=== PATIENT | female | born 1995 | race American Indian/Alaskan Native ===

== ENCOUNTER 2019-08-04 22:13 | Emergency (ER) | payer SELFPAY ==
[2019-08-05 02:17] LABS: Bilirubin,Urine NEG (Negative); Blood,Urine MOD (Negative); Color,Urine Yellow (Yellow); Protein,Urine <15 mg/dL mg/dL (Negative); Urobilinogen,Urine < 2.0 mg/dL (<2.0)
[2019-08-05 02:20] LABS: HCG Qualitative,Urine Negative (Negative)
== END 2019-08-05 05:24 | disposition left against medical advice (07) ==
LOC: ED 22:13
DX: R07.89 Other chest pain (principal); R10.9 Unspecified abdominal pain; Z53.21 Procedure and treatment not carried out due to patient leaving prior to being seen by health care provider
CPT/HCPCS: 36415; 81001; 81025; 84703; 87086

== ENCOUNTER 2020-01-27 09:42 | Emergency (ER) | payer MEDICAID ==
[2020-01-27] MEDS ORDERED: ACETAMINOPHEN 325 MG TAB PO ONE (09:51)
[2020-01-27] MEDS ORDERED: PIPERACILLIN/TAZOBACTAM 3.375 3.375 GM/50 ML BAG IV ONE (10:15)
[2020-01-27] MEDS ORDERED: metroNIDAZOLE/NS 500 MG/100 ML 500 MG/100 ML BAG IV ONE (10:15)
--- NOTE | 2020-01-27 10:15 | Emergency Department Report ---
ED Female HPI - General Chief complaint: Abdominal Pain Stated complaint: 9 WKS/MISCARRIAGE/ABD PAIN Time Seen by Provider: 01/27/20 09:50 Source: patient, EMS, old records reviewed Mode of arrival: Stretcher Limitations: No Limitations - History of Present Illness Initial comments: 24-year-old -[place] female presents to the emergency room for stating that she is having abdominal pain and vaginal bleeding. Patient states that she was approximately 9 weeks . Patient reports that she was seen at her [facility] yesterday and informed she was having a miscarriage. Review of patient's medical chart that she brought with her dated 01/13/2020 states that she came in for vaginal bleeding at that time ultrasound shows that she had a demise. Patient reports that she did not followed up with [facility] she was given a drug called misoprostol. Patient states that she is still having vaginal bleeding and abdominal pain and came to the emergency room. It was noted review of patient's triage information shows that she has a temperature of 100.1 she comes in tachycardic at 133 respirations are 20 and abdominal pain 10 out of 10. Patient reported last menstrual period was 11/05/2019. Complaint: vaginal bleeding - Related Data Allergies Allergy/AdvReac Type Severity Reaction Status Date / Time No Known Allergies Allergy Unverified 08/05/19 00:50 ED Review of Systems ROS: Stated complaint: 9 WKS/MISCARRIAGE/ABD PAIN Other details as noted in HPI ED Past Medical Hx - Past Medical History Previous Medical History?: No - Surgical History Past Surgical History?: No - Social History Smoking Status: Never Smoker Substance Use Type: None ED Physical Exam - General Limitations: No Limitations General appearance: alert, in no apparent distress - Head Head exam: Present: atraumatic, normocephalic - Eye Eye exam: Present: normal appearance - ENT ENT exam: Present: mucous membranes moist - Neck Neck exam: Present: normal inspection - Respiratory Respiratory exam: Present: normal lung sounds bilaterally. Absent: respiratory distress - Cardiovascular Cardiovascular Exam: Present: tachycardia - GI/Abdominal GI/Abdominal exam: Present: soft, tenderness. Absent: distended - Extremities Exam Extremities exam: Present: normal inspection - Back Exam Back exam: Present: normal inspection - Neurological Exam Neurological exam: Present: alert, oriented X3 - Psychiatric Psychiatric exam: Present: normal affect, normal mood - Skin Skin exam: Present: warm, dry, intact, normal color. Absent: rash ED Course Vital Signs 01/27/20 01/27/20 09:45 12:52 Temperature 100.1 F H 98.2 F Pulse Rate 133 H 112 H Respiratory 20 16 Rate Blood Pressure 114/67 Blood Pressure 100/50 [Left] O2 Sat by Pulse 100 100 Oximetry ED Medical Decision Making - Lab Data Result diagrams: 01/27/20 10:56 01/27/20 10:56 - Radiology Data Radiology results: report reviewed Print Report Referring Physician:CINTHIA CORONADOPatient Name:AUGUSTA COKERPatient ID:[id number] of :[id number]:FemaleAccession:[id number] Date:[id number] Status:Finalized Findings [facility] [address] [place] [address] Ultrasound Report Signed Patient: AUGUSTA COKER MR#: [id number] : 1995 Acct:[id number] Age/Sex: 24 / F ADM Date: 01/27/20 Loc: ED Attending Dr: Ordering Physician: KAT MARCUS Date of Service: 01/27/20 Procedure(s): US OB transvaginal Accession Number(s): [id number] cc: KAT MARCUS ULTRASOUND OBSTETRIC INDICATION / CLINICAL INFORMATION: abd pain 9 weeks fever. Clinical Gestational Age (GA): 11.6 weeks.days TECHNIQUE: Transabdominal and Transvaginal. COMPARISON: None available. FINDINGS: GESTATIONAL SAC: Small, irregular fluid collection in the endometrial canal in the body of the uterus. Moderate size, heterogeneous fluid collection versus gestational sac in the endocervical canal. YOLK SAC: Not visualized. EMBRYO/FETUS: Not visualized. ADNEXA: Simple cyst in the left ovary measuring 3 x 2.1 cm. No adnexal mass. FREE FLUID: None. ADDITIONAL FINDINGS: None. IMPRESSION: 1. Irregular fluid collections within the intrauterine endometrial canal and the endocervical canal. No definite yolk sac or pole. Spontaneous in progress should be considered. Clinical and laboratory correlation is recommended. Signer Name: Veronika Pink MD Signed: 01/27/2020 10:41 AM Workstation Name: [id number] Transcribed By: DT Dictated By: Jamie Pink MD Electronically Authenticated By: Jamie Pink MD Signed Date/Time: 01/27/20 1041 DD/ 1037 TD/TT: - Medical Decision Making 24-year-old -[place] female presents to the emergency room for stating that she is having abdominal pain and vaginal bleeding. Patient states that she was approximately 9 weeks . Patient reports that she was seen at her [facility] yesterday and informed she was having a miscarriage. Review of patient's medical chart that she brought with her dated 01/13/2020 states that she came in for vaginal bleeding at that time ultrasound shows that she had a demise. Patient reports that she did not followed [facility] with [facility] she was given a drug called misoprostol. Patient states that she is still having vaginal bleeding and abdominal pain and came to the emergency room. It was noted review of patient's triage information shows that she has a temperature of 100.1 she comes in tachycardic at 133 respirations are 20 and abdominal pain 10 out of 10. Patient reported last menstrual period was 11/05/2019. Patient was ordered several labs went ahead and treated her with antibiotics for concern for sepsis. Patient reports she feels much better Spoke with from [facility]. Reviewed patient's clinical history and presentation [facility] feels patient is currently having a spontaneous . He recommends that patient goes through a pad a half an hour for several hours become weak lethargic shortness of breath chest pain or dizziness to return back to the emergency room or follow-up with them at [facility]. Spoke to patient regarding conversation with [facility]. Patient will wanted me to speak with her mother that is in [place] as she had several questions as well. Critical care attestation.: If time is entered above; I have spent that time in minutes in the direct care of this critically ill patient, excluding procedure time. ED Disposition Clinical Impression: Spontaneous miscarriage Disposition: DC-01 TO HOME OR SELFCARE Is pt being admited?: No Does the pt Need Aspirin: No Condition: Stable Instructions: Spontaneous Miscarriage (ED), Abdominal Pain (ED) Additional Instructions: Follow-up with [facility] if you have heavy vaginal bleeding where you are saturating a pad half an hour for several hours or you start to become dizzy. Tylenol for pain management. Referrals: [facility] [Provider Group] - 3-5 Days [facility], [Primary Care Provider] - 3-5 Days Forms: Work/School Release Form(ED)
[2020-01-27] MEDS ORDERED: SODIUM CHLORIDE 0.9% 1000 ML IV SOLN IV ONE (10:17)
--- NOTE | 2020-01-27 10:45 | Ultrasound Report ---
ULTRASOUND OBSTETRIC INDICATION / CLINICAL INFORMATION: abd pain 9 weeks fever. Clinical Gestational Age (GA): 11.6 weeks.days TECHNIQUE: Transabdominal and Transvaginal. COMPARISON: None available. FINDINGS: GESTATIONAL SAC: Small, irregular fluid collection in the endometrial canal in the body of the uterus . Moderate size, heterogeneous fluid collection versus gestational sac in the endocervical canal. YOLK SAC: Not visualized. EMBRYO/FETUS: Not visualized. ADNEXA: Simple cyst in the left ovary measuring 3 x 2.1 cm. No adnexal mass. FREE FLUID: None. ADDITIONAL FINDINGS: None. IMPRESSION: 1. Irregular fluid collections within the intrauterine endometrial canal and the endocervical canal. No definite yolk sac or pole. Spontaneous in progress should be considered. Clinical a nd laboratory correlation is recommended. Signer Name: Veronika Pink MD Signed: 01/27/2020 10:41 AM Workstation Name: [id number]
[2020-01-27 11:23] LABS: Hematocrit 26.8 % (30.3-42.9); Hemoglobin 8.8 gm/dl (10.1-14.3); Mean Corpuscular HGB Conc 33 % (30-34); Mean Corpuscular Volume 73 fl (79-97); Platelet Count 315 K/mm3 (140-440); Red Blood Count 3.66 M/mm3 (3.65-5.03); Red Cell Distribution Width 13.8 % (13.2-15.2)
[2020-01-27 11:49] LABS: Alanine Aminotransferase 26 units/L (7-56); Albumin 3.5 g/dL (3.9-5); BUN/Creatinine Ratio 3; Blood Urea Nitrogen 2 mg/dL (7-17); Calcium 8.3 mg/dL (8.4-10.2); Hemolysis Index 1
[2020-01-27 11:51] LABS: Bilirubin,Urine NEG (Negative); Blood,Urine MOD (Negative); Color,Urine Colorless (Yellow); Protein,Urine <15 mg/dL mg/dL (Negative); Urobilinogen,Urine < 2.0 mg/dL (<2.0); WBC,Urine < 1.0 /HPF (0.0-6.0)
[2020-01-27 12:52] VITALS: BP 100/50
[2020-01-27 13:00] LABS: Anisocytosis 1+; Band Neutrophils # (Manual) 0.8 K/mm3; Basophils % (Manual) 0 % (0.0-1.8); Eosinophils % (Manual) 0 % (0.0-4.3); Hypochromasia 1+; Platelet Estimate Consistent w Auto; Total Cells Counted 100
[2020-01-27] MEDS ORDERED: oxyCODONE 5 MG TAB PO ONE (13:41)
== END 2020-01-27 15:04 | disposition home or self-care (01) ==
LOC: ED 09:42
DX: O03.9 Complete or unspecified spontaneous abortion without complication (principal); Z3A.09 9 weeks gestation of pregnancy
CPT/HCPCS: 36415; 76801; 76817; 80053; 81001; 82140; 84702; 85007; 85025; 96365; 96368; 99284; J2543; J7030